=== PATIENT | male | born 1970 | race Caucasian/White ===

== ENCOUNTER → 2016-07-01 | Outpatient (CLI) | payer BC | LOC: US 06-27 14:30 → KOH-I 09:29 | DX: R30.0 Dysuria (principal); R31.9 Hematuria, unspecified; N20.0 Calculus of kidney | CPT/HCPCS: 76775 ==

== ENCOUNTER 2016-07-14 15:18 | Emergency (ER) | payer BC ==
[2016-07-14 17:38] LABS: HEMOGLOBIN 14.6 gm/dl (14.0-17.5); RED BLOOD COUNT 4.96 M/UL (4.20-5.50); WHITE BLOOD COUNT 7.2 K/UL (4.5-11.0)
== END 2016-07-14 19:29 | disposition home or self-care (01) ==
LOC: ER1 15:18
PROVIDERS: Nurse Practitioner Family
DX: N17.9 Acute kidney failure, unspecified (principal); N13.2 Hydronephrosis with renal and ureteral calculous obstruction
CPT/HCPCS: 36415; 80053; 81001; 85025; 87086; 96361; 96374; 99284; J1885

== ENCOUNTER → 2016-08-26 | Outpatient (CLI) | payer BC | LOC: KOH-I 07:55 | DX: N20.0 Calculus of kidney (principal) | CPT/HCPCS: 74000 ==

== ENCOUNTER → 2021-02-02 | Outpatient (CLI) | payer BC ==
[~2021-02-02] MED LIST: CYCLOBENZAPRINE10 MG PO; EFFEXOR XR75 MG PO; HYDROCHLOROTH12.5 MG PO; LEVOTHYROXINE25 MCG PO
== END ==
LOC: KOH-I 16:01
DX: S00.95XA Superficial foreign body of unspecified part of head, initial encounter (principal)
CPT/HCPCS: 70250